=== PATIENT | female | born 1980 | race Caucasian/White ===

== ENCOUNTER 2018-02-06 03:20 | Inpatient (IN) | payer BC ==
[~2018-02-06] VITALS: Ht 154.9 cm; Wt 97.5 kg
[~2018-02-06 03:20] MED LIST: PEPCID AC20 MG PO; PRENATAL TABLE1 EACH PO
[2018-02-06 06:11] VITALS: BP 111/67
[2018-02-06 06:47] LABS: AMPHETAMINE NEGATIVE (500 ng/mL); BARBITURATES NEGATIVE (200 ng/mL); BENZODIAZEPINES NEGATIVE (150 ng/mL); BUPRENORPHINE NEGATIVE (10 ng/mL); COCAINE NEGATIVE (150 ng/mL); METHADONE NEGATIVE (200 ng/mL); METHAMPHETAMINE NEGATIVE (500 ng/mL); OPIATES (MORPHINE) NEGATIVE (100 ng/mL); OXYCODONE NEGATIVE (100 ng/mL); PHENCYCLIDINE NEGATIVE (25 ng/mL); PROPOXYPHENE NEGATIVE (300 ng/mL); THC CANNABINOIDS NEGATIVE (50 ng/mL); TRICYCLIC ANTIDEPRESSANTS NEGATIVE (300 ng/mL)
[2018-02-06 07:23] VITALS: BP 115/75
[2018-02-06] MEDS ORDERED: IBUPROFEN800 MG PO (07:49)
[2018-02-06] MEDS ORDERED: BISAC-EVAC10 MG PR (07:49)
[2018-02-06] MEDS ORDERED: ENDOCET 5-3251 EACH PO (07:49)
[2018-02-06 19:47] VITALS: BP 114/64
[2018-02-07 02:57] VITALS: BP 109/59
[2018-02-07 06:09] LABS: BASOPHIL (%) 0.2 % (0-1); EOSINOPHIL (%) 0.3 % (0-5); HEMATOCRIT 31.1 % (36.0-46.0); HEMOGLOBIN 9.9 G/DL (11.9-15.5); IMMATURE GRANULOCYTE (%) 0.8 % (0.0-0.7); LYMPHOCYTE (%) 16.9 % (15-42); LYMPHOCYTE COUNT 1.6 K/uL (1.0-2.8); MCHC 31.8 G/DL (30.0-36.0); MCV 87.9 FL (83-99); MONOCYTE (%) 4.6 % (3-12); MONOCYTE COUNT 0.4 K/uL (0-0.8); NEUTROPHIL (%) 77.2 % (45-76); NEUTROPHIL COUNT 7.4 K/uL (1.8-6.4); PLATELET COUNT 160 K/uL (156-360); RBC DIS.WIDTH-CV 14.3 % (11.8-14.6); RBC DIS.WIDTH-SD 46.1 % (39-53); RED BLOOD COUNT 3.54 M/uL (3.80-5.20); WHITE BLOOD COUNT 9.6 K/uL (4.1-10.2)
[2018-02-07 19:10] VITALS: BP 114/69
[2018-02-07 22:50] VITALS: BP 115/66
[2018-02-08 03:00] VITALS: BP 111/55
== END 2018-02-08 15:00 | disposition home or self-care (01) | DRG 766 ==
LOC: 2SOUTH 03:20 → 2WEST 05:37 → 2SOUTH 07:40 → 2WEST 02-08 15:00
PROVIDERS: Obstetrics & Gynecology Gynecology
DX: O34.211 Maternal care for low transverse scar from previous cesarean delivery (principal); O32.1XX0 Maternal care for breech presentation, not applicable or unspecified; O99.214 Obesity complicating childbirth; E66.9 Obesity, unspecified; Z68.35 Body mass index [BMI] 35.0-35.9, adult; Z30.2 Encounter for sterilization; Z3A.39 39 weeks gestation of pregnancy; Z37.0 Single live birth; Z87.891 Personal history of nicotine dependence
CPT/HCPCS: 36415; 85025; 86850; 86900; 86901; 88302; J0690; J1885; J2274; J2405; J2550; J2590; J2765; J7120; S0020